=== PATIENT | male | born 1955 | race Caucasian/White ===

== ENCOUNTER → 2017-04-26 | Day surgery (SDC) | payer BC ==
[~2017-04-26] MED LIST: ATROPINE SULFATE 1% OPHT SOLN 5 ML BTL ONE; DEXAMETHASONE SOD PHOS 4 MG/ML VIAL ONE; EPINEPHrine HCL (1:1000) 1 MG/ML VIAL ONE; HYALURONIDASE/LIDOCAINE/BUPIVACAINE 11 ML SYR TL ONE; NEOMYCIN/POLYMYXIN/DEXAMETHASONE OPTH OINT 3.5 GM TUBE ONE; PHENYLEPHRINE HCL 2.5 % OPTH SOLN 15 ML BTL ONE; PROPOFOL 200 MG/20 ML AMP IV ONE; SODIUM CHLORIDE 0.9% INJ 10 ML ONE; TETRACAINE 0.5% OPTH SOLN 15 ML BTL ONE; TRIAMCINOLONE ACETONIDE 40 MG/ML VIAL ONE; TROPICAMIDE 1% OPHT SOLN 15 ML BTL ONE; ceFAZolin INJ 1,000 MG VIAL ONE
== END | disposition home or self-care (01) ==
LOC: ESDC 06:23
PROVIDERS: ATTEND Ophthalmology Retina Specialist
DX: H33.012 Retinal detachment with single break, left eye (principal)
CPT/HCPCS: 00145; 67108; J0171; J0690; J1100; J3010; J3301

== ENCOUNTER → 2017-05-31 | Day surgery (SDC) | payer BC ==
[~2017-05-31] MED LIST changes: -HYALURONIDASE/LIDOCAINE/BUPIVACAINE 11 ML SYR TL ONE; +HYALURONIDASE/LIDOCAINE/BUPIVACAINE 5 ML SYR ONE; +LACTATED RINGER'S 1000 ML INJ 1,000 ML ONE; +MIDAZOLAM HCL 2 MG/2 ML VIAL ONE; -NEOMYCIN/POLYMYXIN/DEXAMETHASONE OPTH OINT 3.5 GM TUBE ONE; +ONDANSETRON HCL 4 MG/2 ML VIAL IV PUSH ONE; -TRIAMCINOLONE ACETONIDE 40 MG/ML VIAL ONE
--- NOTE | 2017-06-04 11:15 | MP ---
cc: BJORN AGUILAR MD DATE OF : 59 DATE OF SURGERY: 05/31/2017 PREOPERATIVE DIAGNOSIS: Macular hole, left eye. POSTOPERATIVE DIAGNOSIS: Macular hole, left eye. OPERATION: Pars plana vitrectomy, membrane peeling, gas-fluid exchange, left eye. ANESTHESIA: MAC. SURGEON: Bjorn Aguilar MD. COMPLICATIONS: None. PROCEDURE: After informed consent was obtained and the eye was anesthetized with peribulbar anesthesia, she was brought to the operating room and the left eye was prepared and draped in the usual sterile fashion. A wire lid speculum was placed in the patient's left eye. 23 gauge vitrectomy cannulas were then placed in the lower temporal, supratemporal and supranasal quadrants 3 millimeters posterior to the corneoscleral limbus. An infusion cannula was placed lower temporally. Core vitrectomy was then performed using the vitreous cutter. The vitrectomy was carried out as far as possible to the vitreous base. Posteriorly the internal limiting membrane was peeled off from around the macular hole using intraocular forceps. Careful indirect ophthalmoscopy with scleral depression was then performed and no peripheral retinal breaks were noted. A complete air fluid exchange was then performed. The air was then exchanged for 16% C3F8. The three vitrectomy cannulas were then removed. Subconjunctival injections of dexamethasone and Ancef were placed. An atropine drop, Maxitrol ointment and a patch and shield were then applied. The patient tolerated the procedure well. There were no complications. ADDENDUM: The patient had a previous vitrectomy from retinal detachment that was well-healed. He had an epiretinal membrane which was peeled and the IOL from around the macular hole was peeled. He will remain face down over the next five days. He will follow up in tomorrow in my [place] office. Bjorn Aguilar MD TAB/ROBERTA /9:45 AM /11:13 AM
== END | disposition home or self-care (01) ==
LOC: ESDC 13:16
PROVIDERS: ATTEND Ophthalmology Retina Specialist
DX: H35.342 Macular cyst, hole, or pseudohole, left eye (principal)
CPT/HCPCS: 00145; 67042; J0171; J0690; J1100; J2250; J2405; J3010; J7120